=== PATIENT | female | born 2000 | race African-American/Black ===

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

== ENCOUNTER → 2020-05-22 | Outpatient (CLI) | payer OTHER ==
[~2020-05-22] VITALS: Ht 157.5 cm; Wt 79.5 kg
[~2020-05-22] MED LIST changes: +DOCU100C16 PO; +IBUP80TA PO; +IRON SUCROSE 300 MG in NS 250 ML OVER 90 MIN. IV ONE; +IRON15CH PO; +PERCOCET PO; +PREN29TA4 PO
[2020-05-22 10:23] VITALS: BP 108/59
[2020-05-22 11:03] VITALS: BP 109/64
[2020-05-22 12:04] VITALS: BP 105/62
[2020-05-22 13:29] VITALS: BP 102/56
== END ==
LOC: M INFU 10:01
PROVIDERS: ATTEND Registered Nurse Maternal Newborn
DX: O99.013 Anemia complicating pregnancy, third trimester (principal); D50.9 Iron deficiency anemia, unspecified; Z3A.36 36 weeks gestation of pregnancy
CPT/HCPCS: 96365; 96366; J1756

== ENCOUNTER 2020-05-29 08:00 | Outpatient (CLI) | payer OTHER ==
[~2020-05-29 08:00] MED LIST changes: -DOCU100C16 PO; -IBUP80TA PO; -IRON SUCROSE 300 MG in NS 250 ML OVER 90 MIN. IV ONE; -PERCOCET PO
[2020-05-29] MEDS ORDERED: IRON SUCROSE 100MG 5ML VIAL (J1756 PER 1MG) ONE (08:01)
== END 2020-05-29 12:00 | disposition home or self-care (01) ==
LOC: M INFU 08:00
PROVIDERS: ATTEND Registered Nurse Maternal Newborn
DX: D50.9 Iron deficiency anemia, unspecified (principal); Z3A.36 36 weeks gestation of pregnancy
CPT/HCPCS: 96365; 96366; J1756

== ENCOUNTER 2020-06-05 11:30 | Outpatient (CLI) | payer OTHER ==
[~2020-06-05 11:30] MED LIST changes: +IRON SUCROSE 100MG 5ML VIAL (J1756 PER 1MG) ONE
== END 2020-06-05 15:40 | disposition home or self-care (01) ==
LOC: M INFU 11:30
PROVIDERS: ATTEND Registered Nurse Maternal Newborn
DX: D50.9 Iron deficiency anemia, unspecified (principal)
CPT/HCPCS: 96365; 96366; J1756

== ENCOUNTER 2020-06-20 11:30 | Inpatient (IN) | payer OTHER ==
[~2020-06-20] VITALS: Ht 157.5 cm; Wt 83.4 kg
[~2020-06-20 11:30] MED LIST changes: -IRON SUCROSE 100MG 5ML VIAL (J1756 PER 1MG) ONE
[2020-06-20] MEDS ORDERED: miSOPROStol 50 MCG 1/2 TAB (S0191) As Ordered ONE (15:07)
[2020-06-20] MEDS ORDERED: SLF 3 ML SYR IV PRN (19:00)
[2020-06-20] MEDS: miSOPROStol 50 MCG 1/2 TAB (S0191) PO SCH ×2 (19:48→23:15)
[2020-06-20] MEDS ORDERED: FLUCONAZOLE 50MG TABLET ONE (21:00)
[2020-06-20] MEDS ORDERED: **PENDING PCN ENTRY XX SCH (21:00)
[2020-06-20 21:19] LABS: HEMATOCRIT 34.5 % (36.0-47.0); HEMOGLOBIN 11.2 g/dl (12.0-15.5); MEAN CORPUSCULAR HGB CONC 32.5 g/dl (32.0-36.5); PLATELET COUNT, AUTOMATED 156 10^3/uL (150-450); RED BLOOD COUNT 4.31 10^6/uL (4.00-5.40); WHITE BLOOD COUNT 7.5 10^3/uL (4.0-10.0)
[2020-06-20] MEDS ORDERED: SLF 3 ML SYR IV SCH (22:00)
[2020-06-21] MEDS ORDERED: LR 500 ML IV ONE (00:30)
[2020-06-21] MEDS ORDERED: PENICILLIN G POTASSIUM 5 MU VIAL As Ordered ONE (06:18)
[2020-06-21] MEDS ORDERED: PENICILLIN G POTASSIUM IV 5 MU in D5W MINI-BAG PLUS 100 ML IV STA (06:23)
[2020-06-21] MEDS ORDERED: BUTORPHANOL 2 MG/ML INJ (J0595) As Ordered ONE (09:39)
[2020-06-21] MEDS ORDERED: PROMETHAZINE INJ 25 MG/ML VIAL (J2550) As Ordered ONE (09:40)
[2020-06-21] MEDS: PENICILLIN G POTASSIUM IV 2.5 MU in IV 1 EA IV SCH ×5 (09:48→22:32)
[2020-06-21] MEDS ORDERED: PROMETHAZINE INJ 25 MG/ML VIAL (J2550) IV PRN (10:00)
[2020-06-21] MEDS ORDERED: BUTORPHANOL 2 MG/ML INJ (J0595) IV PRN (10:00)
[2020-06-21] MEDS ORDERED: OXYTOCIN DRIP 30 UNITS in IV 1 EA IV SCH (14:00)
[2020-06-21] MEDS: LR 1,000 ML IV SCH ×3 (14:06→23:30)
[2020-06-21] MEDS ORDERED: FENTANYL 2MCG/ML ROPIVACAINE 0.2% IN 0.9% NACL 100ML IVBAG As Ordered ONE (18:56)
[2020-06-21] MEDS: FENTANYL/ROPIVACAINE/NACL BAG 100 ML EPIDURAL SCH (19:41)
[2020-06-21] MEDS ORDERED: diphenhydrAMINE 50MG/ML VIAL (J1200) IV PRN (19:45)
[2020-06-21] MEDS ORDERED: LACTATED RINGER'S 1000 ML IV PRN (19:45)
[2020-06-21] MEDS ORDERED: NALOXONE INJ 0.4MG/1ML VIAL (J2310 PER 1MG) IV PRN (19:45)
[2020-06-21] MEDS ORDERED: ePHEDrine SULFATE 25 MG/5 ML(5MG/ML) SYRINGE IV PRN (19:45)
[2020-06-21] MEDS ORDERED: REFRIGERATOR IV KEYS XX PRN (19:45)
[2020-06-21] MEDS ORDERED: EPIDURAL/PCA KEYS XX PRN (19:45)
[2020-06-21] MEDS ORDERED: ONDANSETRON 4MG/2ML VIAL IV PRN (19:45)
[2020-06-21] MEDS ORDERED: EPIDURAL COMMENT XX SCH (19:45)
[2020-06-22] VITALS (9 sets, daily range): BP systolic 102–139; BP diastolic 54–87
[2020-06-22] MEDS: PENICILLIN G POTASSIUM IV 2.5 MU in IV 1 EA IV SCH (02:28)
[2020-06-22] MEDS: FENTANYL/ROPIVACAINE/NACL BAG 100 ML EPIDURAL SCH (04:03)
[2020-06-22] MEDS: LR 1,000 ML IV SCH (04:13)
[2020-06-22] MEDS ORDERED: ceFAZolin 1GM VIAL (J0690 PER 500MG) As Ordered ONE (05:13)
[2020-06-22] MEDS ORDERED: AZITHROMYCIN INJ 500MG VIAL (J0456 PER 500MG) As Ordered ONE (05:13)
[2020-06-22] MEDS ORDERED: AZITHROMYCIN INJ 500 MG, VIAL MATE ADAPTER 1 EACH in D5W 250 ML IV ONE (05:15)
[2020-06-22] MEDS ORDERED: ceFAZolin SOD 2 GM in IV 1 EA IV ONE (05:15)
[2020-06-22] MEDS ORDERED: BICITRA 30ML SOLN UDC PO ONE (05:15)
[2020-06-22] MEDS ORDERED: MORPHINE PRES-FREE INJ 10 MG/10 ML VIAL (J2274) As Ordered ONE (05:16)
[2020-06-22] MEDS ORDERED: dexameTHASONE 4 MG/ML 1ML VIAL (J1100 PER 1MG) As Ordered ONE ×2 (05:17→05:21)
[2020-06-22] MEDS ORDERED: OXYTOCIN 30 UNITS IN 0.9% NaCl 500ML IV BAG (J2590) As Ordered ONE (05:17)
[2020-06-22] MEDS ORDERED: ePHEDrine SULFATE 25 MG/5 ML(5MG/ML) SYRINGE As Ordered ONE (05:17)
[2020-06-22] MEDS ORDERED: PHENYLephrine HCL 500 MCG/5 ML (100MCG/ML) SYRINGE (J2370) As Ordered ONE (05:17)
[2020-06-22] MEDS ORDERED: ONDANSETRON 4MG/2ML VIAL As Ordered ONE (05:17)
[2020-06-22] MEDS ORDERED: KETOROLAC 60MG 2ML VIAL As Ordered ONE (05:17)
[2020-06-22] MEDS ORDERED: BICITRA 30ML SOLN UDC As Ordered ONE (05:17)
[2020-06-22] MEDS ORDERED: OXYTOCIN INJ 10 UNITS/ML VIAL (J2590) As Ordered ONE (05:18)
[2020-06-22] MEDS ORDERED: MIDAZOLAM INJ 2MG/2ML VIAL (J2250 PER 1MG) As Ordered ONE (05:55)
[2020-06-22] MEDS ORDERED: propofoL 200 MG/20 ML VIAL As Ordered ONE (05:58)
[2020-06-22] MEDS ORDERED: diphenhydrAMINE 50MG/ML VIAL (J1200) IV PRN (06:15)
[2020-06-22] MEDS ORDERED: ONDANSETRON 4MG/2ML VIAL IV PRN ×3 (06:15→07:45)
[2020-06-22] MEDS ORDERED: NALBUPHINE HCL 10 MG/ML AMP (J2300) IV PRN (06:15)
[2020-06-22] MEDS ORDERED: METOCLOPRAMIDE INJ 10MG/2ML VIAL (J2765 PER 1) IV PRN ×2 (06:15→07:45)
[2020-06-22] MEDS ORDERED: NALOXONE INJ 0.4MG/1ML VIAL (J2310 PER 1MG) IV PRN ×2 (06:15)
--- NOTE | 2020-06-22 06:48 | ROOPDOC ---
[facility] Report Of Operation Report of Operation DATE OF PROCEDURE: 06/22/20 SURGEON: Rickey Maldonado M.D. PAINTER FOREMAN:Gilbert HaleNMelissa ANESTHESIA: Epidural PREOPERATIVE DIAGNOSIS: 1. Intrauterine at 41weeks 2. Arrest of dilation POSTOPERATIVE DIAGNOSIS: 1. Intrauterine at 41weeks 2. Arrest of dilation ESTIMATED BLOOD LOSS: 600 mL URINE OUTPUT: 125 mL INTRAVENOUS FLUIDS: 1500 mL PREOPERATIVE ANTIBIOTICS: 2 g of Ancef 500 mg of azithromycin OPERATIVE FINDINGS: Liveborn female , Apgars 8 and 9. Weight was 3220 or 7 lbs. 2 oz. SPECIMENS: Cord blood DESCRIPTION OF PROCEDURE: After informed consent was obtained and written consent was reviewed. The patient was brought to the operating room where spinal anesthesia was placed. She was then placed in the supine position with a left lateral tilt. Nunes catheter was previously placed. Patient was then prepped and draped in the normal sterile fashion. A timeout operating room was performed identifying the patient, procedure be performed as well as drug allergies. Anesthesia was tested and deemed to be adequate. Pfannenstiel skin incision was made and this was carried down to the underlying rectus fascia. The fascia was then scored and this incision was extended bilaterally. The fascia was then dissected off the underlying rectus muscle superiorly and inferiorly. The rectus muscles were then in the midline. The peritoneum is then entered. Vesicouterine peritoneum was then tented and excised and a bladder flap was created. Mobius retractor was then placed. Next, a curvilinear incision was then made in the lower uterine segment. The head was brought to the level of the incision atraumatically and delivered along the shoulders and corpus. The cord was clamped x-2. The infant was brought over to the warmer with a good cry. Placenta was drained and delivered grossly intact. The uterus was cleared of all clots and debris and the uterine incision was then closed in 2 layers using 0 Vicryl, first in a running locking fashion followed by second layer for imbrication. The abdomen suctioned. Surgical sites reinspected and noted be hemostatic. The retractor was then removed. The anterior peritoneum was then reapproximated with 3-0 Vicryl. The rectus muscles were reapproximated 3-0 Vicryl. The fascia was then closed using 0 Vicryl in a running nonlocking fashion. The subcutaneous tissues was then irrigated and suctioned. Several subdermal stitch is placed using 3-0 Vicryl and the skin was closed with 4-0 Monocryl and subcuticular fashion. This incision was then cleaned and dried and was dressed. The patient was then taken to recovery in stable condition. All counts were correct. The patient has decided to name their , Luann My surgical instrument maker. Malinda Woodard CNM played in an essential role during the operation. He assisted with tissue identification retraction, delivery of the , as well as wound closure. RICKEY MALDONADO MD. Jun 22, 2020 06:48
[2020-06-22] MEDS ORDERED: OXYTOCIN DRIP 30 UNITS in IV 1 EA IV SCH (06:58)
[2020-06-22] MEDS ORDERED: LR 1,000 ML IV SCH ×2 (06:58→07:45)
[2020-06-22] MEDS ORDERED: MEASLES,MUMPS,RUBELLA VACCINE INJ (MMR-II) (90707) SC SCH (07:00)
[2020-06-22] MEDS ORDERED: RHOGAM 300 MCG (1500 IU) INJ (J2790) IM SCH (07:00)
[2020-06-22] MEDS ORDERED: PERCOCET 5MG/325MG TAB PO PRN (07:00)
[2020-06-22] MEDS ORDERED: MOM 30ML SUSPENSION UDC PO PRN (07:00)
[2020-06-22] MEDS ORDERED: fentaNYL 100 MCG/2 ML INJECTION (J3010) IV PRN (07:45)
[2020-06-22] MEDS: PRENATAL VITAMINS CHEWABLE TABLET PO SCH (09:00)
[2020-06-22] MEDS: DOCUSATE SODIUM 100 MG CAP PO SCH ×2 (10:04→21:10)
[2020-06-22] MEDS: KETOROLAC 30 MG/ML 1ML VIAL IV SCH ×2 (13:03→18:47)
[2020-06-23] MEDS: KETOROLAC 30 MG/ML 1ML VIAL IV SCH (00:43)
[2020-06-23 02:00] VITALS: BP 108/58
[2020-06-23 06:00] VITALS: BP 115/75
[2020-06-23 07:30] LABS: HEMATOCRIT 28.9 % (36.0-47.0); HEMOGLOBIN 9.3 g/dl (12.0-15.5); MEAN CORPUSCULAR HEMOGLOBIN 25.7 pg (27.0-33.0); MEAN CORPUSCULAR HGB CONC 32.2 g/dl (32.0-36.5); MEAN CORPUSCULAR VOLUME 79.8 fl (80.0-96.0); PLATELET COUNT, AUTOMATED 131 10^3/uL (150-450); RED BLOOD COUNT 3.62 10^6/uL (4.00-5.40); WHITE BLOOD COUNT 11.6 10^3/uL (4.0-10.0)
[2020-06-23] MEDS: IBUPROFEN 800 MG TAB PO SCH ×2 (08:41→17:18)
[2020-06-23] MEDS: PRENATAL VITAMINS CHEWABLE TABLET PO SCH (08:41)
[2020-06-23] MEDS: DOCUSATE SODIUM 100 MG CAP PO SCH ×2 (08:41→21:13)
[2020-06-23 10:00] VITALS: BP 96/56
[2020-06-23 14:00] VITALS: BP 135/73
[2020-06-23 18:17] VITALS: BP 113/68
[2020-06-23] MEDS: PERCOCET 5MG/325MG TAB PO PRN ×2 (18:41→23:57)
[2020-06-23 22:00] VITALS: BP 106/59
[2020-06-24] MEDS: IBUPROFEN 800 MG TAB PO SCH ×2 (01:25→09:24)
[2020-06-24 02:00] VITALS: BP 123/68
[2020-06-24 06:00] VITALS: BP 97/64
[2020-06-24] MEDS ORDERED: DOCU100C16 PO (07:22)
[2020-06-24] MEDS ORDERED: IBUP80TA PO (07:22)
[2020-06-24] MEDS ORDERED: PERCOCET PO (07:22)
--- NOTE | 2020-06-24 09:02 | REPVR ---
PROCEDURE INFORMATION: Exam: US Nonobstetric Pelvis; Complete Exam date and time: 06/24/2020 8:34 AM Age: 20 years old Clinical indication: Pelvic pain; Prior surgery; Surgery date: 3-7 days post-operative; Surgery type: C section; Additional info: Delivered CS right sided pain has ovarian cyst assessment TECHNIQUE: Imaging protocol: Transabdominal pelvic nonobstetric ultrasound. Complete exam. Real time ultrasound with image documentation. COMPARISON: No relevant prior studies available. FINDINGS: Uterus/cervix: The uterus is anteverted and enlarged, measuring 15.6 x 9.1 x 13.0, yields an estimated volume of 923 mL. The endometrial stripe measures 6 mm. Right adnexa: The right ovary measures 2.1 x 2.0 x 2.7 cm. There are normal peripheral follicles within and there is normal vascular flow within. In the right adnexa there is a round echogenic mass measuring 7.2 x 5.2 x 7.5 cm. This does not demonstrate increased vascularity. Left adnexa: The left ovary measures 3.4 x 1.3 x 2.9 cm. There are normal peripheral follicles with normal vascular flow within. Intraperitoneal space: None. Bladder: Normal. IMPRESSION: 1. 7.5 cm right adnexal mass not fully characterized. This could represent an endometrioma, hematoma, or cystic dermoid. 2. Correlation with prior imaging recommended. If indicated, a follow-up CT scan could be performed. Electronically signed by: Salazar Delgado On 06/24/2020 09:02:43 AM
[2020-06-24] MEDS: DOCUSATE SODIUM 100 MG CAP PO SCH (09:24)
[2020-06-24] MEDS: PRENATAL VITAMINS CHEWABLE TABLET PO SCH (09:24)
--- NOTE | 2020-07-17 12:47 | IPN ---
DATE: 06/23/2020 , postoperative day #1. This is a 20-year-old, 2, para 0, had a primary section for arrest of dilatation, delivered a live female infant weighing 7 pounds, 2 ounces. scores of 8 and 9 at 1 and 5 minutes, respectively. On her first day, we discussed phlebitis, cystitis, mastitis, endometritis, and cellulitis, diet, exercise, pain management, perineal, breast, and wound care. On examination today, her vital signs: Blood pressure is 115/75, respirations 16, pulse 90, and temperature is 97.3. The rest of the examination is unremarkable. Normocephalic, atraumatic. Neck full range of motion. Pupils equal and reactive to light. Distal pulses are symmetric. No evidence of deep venous thrombosis (DVT), pulmonary embolus (PE), or superficial phlebitis. Chest is clear bilaterally to bases. No wheezes or rhonchi. No costovertebral angle (CVA) tenderness. Abdomen is soft, uterus two below. Lochia is moderate. Four quadrant bowel sounds are noted. She has no rashes, lesions, or pruritus. No arthralgia, myalgia, no complaint of joint pain. No complaint of cough, wheeze, shortness of breath, or dyspnea on exertion. In summary, we have a term gestation delivered by primary section, a live female infant. Plans are for discharge tomorrow morning. She is and doing well. Medications are dispensed at [facility]. Two week incision check. Six week check. All questions were answered. PETE
--- NOTE | 2020-08-11 13:06 | DS ---
DATE OF ADMISSION: 06/20/2020 DATE OF DISCHARGE: 06/24/2020. BRIEF HISTORY: This lady is 2, now para 1, who was admitted at 41 weeks for induction of labor. She had an arrest of descent and required a primary section. She delivered a live female infant, 7 pounds and 2 ounces, 3220 grams, Apgars of 8 and 9 at 1 and 5 minutes respectively. Throughout her course, she had a right ovarian cyst which was picked up in November on ultrasound. Over the course of her stay, she complained of right-sided pain. We have elected to repeat the ultrasound presently and assess the right ovarian cyst. She has been taking Percocet and Ibuprofen for pain more so on the right side where she favors clearly the ovarian cyst as opposed to pain related to her section. On discharge, her blood pressure was 97/64, respirations 16, pulse 73 and temperature 98.1. Her admitting hemoglobin was 11.2, hematocrit 34.5 and platelets were 156,000. Discharge hemoglobin 9.3, hematocrit 28.9 and platelets were 131,000. We discussed phlebitis, cystitis, mastitis, metritis and cellulitis, diet, exercise, pain management, perineal, breast, and wound care. The rest of the examination is unremarkable. She is presently , doing well. Abdomen is soft. Uterus is 2 below. Lochia is moderate. Four quadrant bowel sounds are noted. Incision is clean and dry. She is tender on the right side, more exaggerated by deep palpation than superficial touch. She is normocephalic, atraumatic. Neck has full range of motion. Pupils equal and reactive to light. Distal pulses symmetric. No evidence of DVT, PE or superficial phlebitis. Chest is clear bilaterally to bases. No wheezes or rhonchi. No CVA tenderness. No rashes, lesions or pruritis. She does have tattoos. No nausea, vomiting, diarrhea or constipation. No diabetic issues. No GI issues. She is voiding and passing gas as well as had a bowel movement. IN SUMMARY: Late term gestation with arrest of descent, had a primary section. DISCHARGE MEDICATIONS: Are dispensed at [place]. FOLLOW-UP: She is to have a two-week incision check at [facility], and a six- week check at [facility]. Patient was discharged improved after her ultrasound. All questions were answered, 20-minute discussion. PETE
== END 2020-06-24 15:15 | disposition home or self-care (01) | DRG 773 ==
LOC: M LDI 11:30 → M OBS 06-22 08:14
PROVIDERS: ADMIT Obstetrics & Gynecology; ATTEND Obstetrics & Gynecology
PROC: 3E0P7GC Introduction of Other Therapeutic Substance into Female Reproductive, Via Natural or Artificial Opening (ICD-10-PCS; 2020-06-20)
PROC: 10D00Z1 Extraction of Products of Conception, Low, Open Approach (ICD-10-PCS; principal; 2020-06-22 06:12)
DX: O48.0 Post-term pregnancy (principal); Z3A.41 41 weeks gestation of pregnancy; Z37.0 Single live birth; O62.0 Primary inadequate contractions; O99.02 Anemia complicating childbirth; D64.9 Anemia, unspecified; O99.824 Streptococcus B carrier state complicating childbirth

== ENCOUNTER 2021-01-23 09:03 | Emergency (ER) | payer OTHER ==
[~2021-01-23] VITALS: Ht 157.5 cm; Wt 70.9 kg
[~2021-01-23 09:03] MED LIST changes: +DOCU100C16 PO; +IBUP80TA PO; +PERCOCET PO
[2021-01-23 09:50] LABS: BASO % 0.3 % (0.0-1.0); EOS % 0.4 % (0.0-3.0); HEMOGLOBIN 13.1 g/dl (12.0-15.5); LYMPH # 1.7 10^3/uL (1.5-5.0); LYMPH % 15.7 % (24.0-44.0); MEAN CORPUSCULAR HEMOGLOBIN 27.3 pg (27.0-33.0); MEAN CORPUSCULAR VOLUME 85.4 fl (80.0-96.0); MONO # 0.5 10^3/uL (0.0-0.8); MONO % 4.5 % (2.0-8.0); NEUTROPHILS # 8.8 10^3/uL (1.5-8.5); NEUTROPHILS % 78.7 % (36.0-66.0); PLATELET COUNT, AUTOMATED 255 10^3/uL (150-450); WHITE BLOOD COUNT 11.1 10^3/uL (4.0-10.0)
[2021-01-23 10:05] LABS: HCG, SERUM QUALITATIVE NEGATIVE (NEGATIVE)
[2021-01-23 10:06] LABS: ALBUMIN 3.8 GM/DL (3.2-5.2); ALT/SGPT 21 U/L (12-78); BILIRUBIN,DIRECT 0.2 MG/DL (0.0-0.2); BILIRUBIN,TOTAL 0.9 MG/DL (0.2-1.0); BLOOD UREA NITROGEN 9 MG/DL (7-18); CALCIUM LEVEL 8.6 MG/DL (8.5-10.1); CARBON DIOXIDE LEVEL 26 MEQ/L (21-32); CHLORIDE LEVEL 108 MEQ/L (98-107); GLUCOSE, FASTING 85 MG/DL (70-100); LIPASE 153 U/L (73-393); POTASSIUM SERUM 3.9 MEQ/L (3.5-5.1); SODIUM LEVEL 138 MEQ/L (136-145); TOTAL PROTEIN 7.6 GM/DL (6.4-8.2)
[2021-01-23] MEDS ORDERED: KETOROLAC 30 MG/ML 1ML VIAL IV ONE (10:45)
--- NOTE | 2021-01-23 13:04 | REP ---
INDICATION: known 10 cm R ovarian cyst, increased pain. COMPARISON: Multiple prior a pelvic ultrasound studies dating to 05/11/2019. TECHNIQUE: Multiple sonographic images of the pelvis including transabdominal, endovaginal and Doppler ultrasound. FINDINGS: The patient has a known complex right ovarian mass, previously thought to represent endometrioma, hematoma or cystic dermoid. It measured 7.4 x 6.4 x 6.9 cm on 05/11/2019 and it on the most recent prior study dated 06/24/2020 it measured 7.5 x 7.2 x 5.2 cm. On the study today the right ovary is obscured by bowel gas and we are unable to visualize this complex mass today. The uterus is retroverted and normal size measuring 7.3 x 4.9 x 5.8 cm. The endometrium is not thickened measuring up to 9 mm. The right ovary could not be visualized on either transabdominal or endovaginal imaging, obscured by bowel gas. Left ovary: The left ovary is upper normal size measuring 4.8 x 2.7 x 1.6 cm. There are multiple subcentimeter left ovarian follicles. There is a left ovarian vascular flow with the Doppler resistive index in the parenchymal arteries measuring 0.47. There is a small volume of free fluid in the cul-de-sac. IMPRESSION: The right ovary and its known complex mass are obscured by bowel gas and not visualized on the study today. There are multiple small follicles in the left ovary. No dominant mass or cyst in the left ovary. There is vascular flow in the left ovary. The uterus is retroverted but otherwise unremarkable. Small volume of free fluid in the cul-de-sac. <Electronically signed by Julien Dawn > 01/23/21 [id number]
[2021-01-23] MEDS ORDERED: ISOVUE-370 76% 100ML VIAL As Ordered ONE (13:28)
--- NOTE | 2021-01-23 14:23 | REP ---
INDICATION: mod RLQ pain, known cyst, unable to visualize on US COMPARISON: None. TECHNIQUE: CT Scan of the abdomen and pelvis was performed with intravenous administration of 100 cc of Isovue 370, without oral contrast. Sagittal and coronal reconstruction images are performed. FINDINGS: Lung bases: Unremarkable. Liver: Normal Gallbladder: Unremarkable. Spleen: Normal. Adrenals: Normal. Pancreas: Normal. Kidneys: Normal. Small and large bowel: Unremarkable. Free fluid: None. Abdominal aorta: No aneurysm or dissection. Adenopathy: None. Appendix: Not inflamed. Osseous structures: Unremarkable. Pelvis: Just superior to the uterus there is a mass which contains fat, with mild posterior internal soft tissue density and large left calcification. This is consistent with a dermoid, or mature cystic ovarian teratoma. IMPRESSION: Just superior to the uterus there is a mass which contains fat, with mild posterior internal soft tissue density and large left calcification. This is consistent with a dermoid, or mature cystic ovarian teratoma. No acute abnormalities detected. <Electronically signed by Julien Sanchez > 01/23/21 [id number]
[2021-01-23 15:08] VITALS: BP 105/63
--- NOTE | 2021-01-24 10:34 | ED PDOC ---
Post-Departure Follow-Up pelvic us and ct abd/p [facility], dr goss for fu Emeka Patel MD Jan 24, 2021 10:34
== END 2021-01-23 15:10 | disposition home or self-care (01) ==
LOC: M ED 09:03
DX: N83.9 Noninflammatory disorder of ovary, fallopian tube and broad ligament, unspecified (principal); Z88.8 Allergy status to other drugs, medicaments and biological substances
CPT/HCPCS: 36415; 74177; 76830; 76856; 80048; 80076; 81001; 83690; 84703; 85025; 93976; 96374; 99284; J1885; Q9967